=== PATIENT | female | born 1950 | race Caucasian/White ===

== ENCOUNTER → 2018-06-30 | Day surgery (SDC) | payer MEDICARE ==
[2018-06-24 13:04] LABS: BASOPHILS % 0.3 % (0.0-1.0); EOSINOPHILS # (AUTO) 0.1 (0.0-0.4); EOSINOPHILS % 1.3 % (0.0-6.0); HEMATOCRIT 38.5 % (34.2-44.1); HEMOGLOBIN 13.3 g/dL (12.0-16.0); LYMPHOCYTES # (AUTO) 1.9 (1.0-3.2); LYMPHOCYTES % 28.4 % (18.0-39.1); MEAN CORPUSCULAR HEMOGLOBIN 29.8 pg (28-32); MEAN CORPUSCULAR HGB CONC 34.5 g/dL (31-35); MEAN CORPUSCULAR VOLUME 86.3 fL (81-99); MONOCYTES # (AUTO) 0.5 (0.2-0.8); MONOCYTES % 7.3 % (4.4-11.3); NEUTROPHILS # (AUTO) 4.2 (2.1-6.9); NEUTROPHILS % 62.4 % (38.7-80.0); PLATELET COUNT 251 x10e3/uL (140-360); RED BLOOD COUNT 4.46 x10e6/uL (3.6-5.1); RED CELL DISTRIBUTION WIDTH 12.2 % (11.7-14.4)
[~2018-06-30] MED LIST: AMLODIPINE BESYL5 MG PO; BENAZEPRIL HCL10 MG PO; CALCIUM + VIT1 EACH PO; FENTANYL CITRATE/PF 100MCG/2 ML INJ ONE; LORATADINE10 MG PO; MIDAZOLAM HCL 2 MG/2 ML VIAL ONE; MULTIVITAMINS1 EAC7 PO; PROPOFOL IV EMULSION 10 MG/ML 50 ML VIAL ONE; ZESTRIL20 MG PO
--- NOTE | 2018-06-30 07:16 | NUR ---
SPIRITUAL CARE - Pre-Surgery Assessment: Pt in bed. Pt's friends at bedside. Pt reported supportive attention from family and friends. Intervention: I provided pastoral presence, hospitality, and sympathetic listening. I acquainted pt with availability of department supervisor while hospitalized. Outcome: Pt expressed appreciation for visit. No need for follow up indicated at this time. [facility] O: [phone] Pager: [phone] ([phone] number [phone])
[2018-06-30 11:45] VITALS: BP 133/73
== END | disposition home or self-care (01) ==
LOC: OR 05:55
PROVIDERS: ATTEND Internal Medicine Gastroenterology
DX: Z12.11 Encounter for screening for malignant neoplasm of colon (principal); D12.6 Benign neoplasm of colon, unspecified; K57.30 Diverticulosis of large intestine without perforation or abscess without bleeding; K64.8 Other hemorrhoids; I10 Essential (primary) hypertension; R00.1 Bradycardia, unspecified; Z91.040 Latex allergy status; Z91.048 Other nonmedicinal substance allergy status; Z01.810 Encounter for preprocedural cardiovascular examination; Z01.812 Encounter for preprocedural laboratory examination; Z68.33 Body mass index [BMI] 33.0-33.9, adult; Z80.0 Family history of malignant neoplasm of digestive organs
CPT/HCPCS: 36415; 45378; 85025; 93005; J2250; J2704